=== PATIENT | female | born 1975 | race Hispanic/Latino ===

== ENCOUNTER → 2018-08-20 | Outpatient (CLI) | payer BC ==
--- NOTE | 2018-08-20 08:42 | Diagnostic Imaging Report ---
PROCEDURE:ABDOMINAL ULTRASOUND COMPARISON:None. INDICATIONS:ABD PAIN FINDINGS: Liver: Measures 14.6 cm. Increased hepatic parenchymal echogenicity. No focal mass. Main portal vein: Measures 1 cm. Hepatopetal flow. Gallbladder: No evidence of stone, distension, or gallbladder wall thickening. Common Bile Duct: Measures 0.3 cm. No echogenic filling defect. Sonographic Glass's sign: Negative. Right kidney: Measures 12.3 cm. No solid or cystic mass, echogenic calculi, or hydronephrosis. Normal parenchymal echogenicity. Left kidney: Measures 11.6 cm. No solid or cystic mass, echogenic calculi, or hydronephrosis. Normal parenchymal echogenicity. Spleen: Measures 11.2 cm. Pancreas: Obscured by overlying bowel gas. Inferior vena cava: Normal. Aorta: Normal. Ascites: None. CONCLUSION: Hepatic steatosis. No sonographic evidence of cholecystitis. Dictated by: MARTY EUGENE M.D. on 08/20/2018 at 8:52 Electronically approved by: MARTY EUGENE M.D. on 08/20/2018 at 8:52
== END ==
LOC: US 07:47
PROVIDERS: ATTEND Family Medicine
DX: R10.9 Unspecified abdominal pain (principal)
CPT/HCPCS: 76700

== ENCOUNTER → 2020-02-02 | Outpatient (CLI) | payer BC ==
--- NOTE | 2020-02-02 14:15 | Diagnostic Imaging Report ---
Hepatobiliary Scan with Gallbladder Ejection Fraction Clinical information: Abdominal pain Technique: Following intravenous administration of 6.6 millicuries of Tc-99m mebrofenin, dynamic images of the abdomen in the anterior projection were obtained through 60 minutes. Sincalide (CCK analog) 2.1 micrograms was administered intravenously over 30 minutes with additional imaging for determination of gallbladder ejection fraction. Discussion: Perfusion of the liver is normal. Extraction of tracer by the liver parenchyma is normal. Tracer appears promptly within the biliary tract. The gallbladder begins to fill at 12 minutes post injection of tracer and fills adequately. Tracer is seen in the small bowel by 30 minutes. There is no contractile response by the gallbladder to the pharmacologic dose of sincalide. No emptying of the gallbladder occurs during the 30 minute infusion. Impression: 1. Filling of the gallbladder excludes acute cystic duct obstruction/acute cholecystitis. 2. The gallbladder ejection fraction is undefined as there is no emptying of the gallbladder during the infusion of sincalide. This absence of a contractile response to sincalide supports the clinical diagnosis of chronic cholecystitis/gallbladder dyskinesia. Signed by: Dr. Yani Justice M.D. on 02/02/2020 2:11 PM
== END ==
LOC: NM 09:05
PROVIDERS: ATTEND Family Medicine
DX: R10.9 Unspecified abdominal pain (principal)
CPT/HCPCS: 78227; 81025; A9537

== ENCOUNTER → 2020-02-16 | Outpatient (CLI) | payer BC ==
[~2020-02-16] MED LIST: DIATRIZOATE MEGL/DIATRIZOA SOD 30 ML BTL PO ONE; IOPAMIDOL 370 MG/ML 200 ML INFUS..BTL INJ ONE; SODIUM CHLORIDE 0.9% 50ML 50 ML ONE
--- NOTE | 2020-02-16 16:17 | Diagnostic Imaging Report ---
CT of the abdomen and pelvis, with contrast, 02/16/2020. History: Right upper quadrant pain. Comparison: HIDA scan 02/02/2020. Technique: Multidetector CT scanning of the abdomen and pelvis was performed from the level of the lung bases to the inferior pubic rami after intravenous and oral administration of contrast. Coronal and sagittal multiplanar reformations were obtained. RADIATION DOSE: Total DLP: 830 mGy*cm Dose modulation, iterative reconstruction, and/or weight based adjustment of the mA/kV was utilized to reduce the radiation dose to as low as reasonably achievable. Discussion: LUNG BASES: No visualized abnormalities. ABDOMEN: The liver, gallbladder, biliary tree, spleen, pancreas, adrenal glands, and kidneys are normal. The hepatic vein, portal vein, and splenic vein are patent. The abdominal aorta is within normal limits for size. The stomach, small bowel, and large bowel are unremarkable. The appendix is visualized and is normal. There is no evidence of adenopathy or free fluid. A small fat-containing umbilical hernia is present. PELVIS: The bladder, uterus, and adnexa are normal in appearance. There is no evidence of free fluid or adenopathy. BONES AND SOFT TISSUES: No abnormality. IMPRESSION: Normal CT of the abdomen and pelvis. Nondistended gallbladder. No evidence of cholelithiasis. Signed by: Deangelo Rocha on 02/16/2020 4:13 PM
== END ==
LOC: CT 12:38
PROVIDERS: ATTEND Surgery
DX: R10.11 Right upper quadrant pain (principal); K76.0 Fatty (change of) liver, not elsewhere classified
CPT/HCPCS: 74160; Q9967

== ENCOUNTER → 2020-02-19 | Day surgery (SDC) | payer BC, OTHER ==
[2020-02-16 14:05] LABS: BASOPHILS % 0.2 % (0.0-1.0); EOSINOPHILS # (AUTO) 0.2 (0.0-0.4); EOSINOPHILS % 2.1 % (0.0-6.0); HEMATOCRIT 39.2 % (34.2-44.1); HEMOGLOBIN 12.7 g/dL (12.0-16.0); LYMPHOCYTES # (AUTO) 2.7 (1.0-3.2); LYMPHOCYTES % 32.1 % (18.0-39.1); MEAN CORPUSCULAR HEMOGLOBIN 27.1 pg (28-32); MEAN CORPUSCULAR HGB CONC 32.4 g/dL (31-35); MEAN CORPUSCULAR VOLUME 83.8 fL (81-99); MONOCYTES # (AUTO) 0.4 (0.2-0.8); MONOCYTES % 4.2 % (4.4-11.3); NEUTROPHILS # (AUTO) 5.1 (2.1-6.9); NEUTROPHILS % 61.2 % (38.7-80.0); PLATELET COUNT 169 x10e3/uL (140-360); RED BLOOD COUNT 4.68 x10e6/uL (3.6-5.1)
[2020-02-16 14:24] LABS: ALANINE AMINOTRANSFERASE 15 IU/L (0-55); ALBUMIN 3.8 g/dL (3.5-5.0); ALBUMIN/GLOBULIN RATIO 1.1 (0.8-2.0); ALKALINE PHOSPHATASE 75 IU/L (40-150); ANION GAP 12.7 mmol/L (8-16); BLOOD UREA NITROGEN 14 mg/dL (7-26); BUN/CREATININE RATIO 16 (6-25); CALCIUM 8.8 mg/dL (8.4-10.2); CARBON DIOXIDE 23 mmol/L (22-29); CHLORIDE 106 mmol/L (98-107); CREATININE, SERUM 0.85 mg/dL (0.57-1.11); EST GLOMERULAR FILTRATION RATE > 60 ML/MIN (60-); GLUCOSE 78 mg/dL (74-118); POTASSIUM 3.7 mmol/L (3.5-5.1); SODIUM 138 mmol/L (136-145)
[~2020-02-19] MED LIST changes: +BUPIVACAINE 0.5%/EPI 30 ML SDV INJ ONE; +DEXAMETHASONE SOD PHOS INJ 4 MG/ML VIAL ONE; -DIATRIZOATE MEGL/DIATRIZOA SOD 30 ML BTL PO ONE; +EPHEDRINE SULFATE INJ 50 MG/ML VIAL ONE; +FENTANYL CITRATE/PF 100MCG/2 ML INJ ONE; +GLYCOPYRROLATE INJ 0.2 MG/ML VIAL ONE; +HYDROCODONE/APAP 7.5MG-325MG 1 EA TAB ONE; -IOPAMIDOL 370 MG/ML 200 ML INFUS..BTL INJ ONE; +LIDOCAINE HCL 2% LOCAL INJ 5 ML SDV VIAL INJ ONE; +MORPHINE SULFATE INJ 10 MG/ML ONE; +NEOSTIGMINE 1 MG/ML 10ML VIAL ONE; +ONDANSETRON HCL INJ 2MG/ML 2ML 2 MG/ML VIAL ONE; +PROPOFOL IV EMULSION 10 MG/ML 20 ML VIAL ONE; +ROCURONIUM BROMIDE 10 MG/ML 5ML VIAL IV ONE; +SEVOFLURANE INHAL SOLN 250 ML PEN BTL ONE; -SODIUM CHLORIDE 0.9% 50ML 50 ML ONE
[2020-02-19 13:20] VITALS: BP 113/61
--- NOTE | 2020-02-19 13:28 | Operative Report ---
DATE OF PROCEDURE: 02/19/2020 SURGEON: Ignacio Sweet MD PREOPERATIVE DIAGNOSIS: Chronic acalculous cholecystitis and biliary dyskinesia. POSTOPERATIVE DIAGNOSIS: Chronic acalculous cholecystitis and biliary dyskinesia. PROCEDURE PERFORMED: Laparoscopic cholecystectomy. [employer]: ROXY Lang. ESTIMATED BLOOD LOSS: Minimal. DRAINS: None. COMPLICATIONS: None. INDICATION AND FINDINGS: This patient is a 44-year-old female who had been complaining of upper abdominal pain, fatty food intolerance since 2018. She had no stones by ultrasound. Ejection fraction by HIDA was zero. CT scan revealed no acute abdominal or pelvic pathology. INTRAOPERATIVE FINDINGS: No stones. No ductal dilatation. On the lateral part of the pelvis, near the lateral aspect of the wall of the urinary bladder, there is a pigmented spot, measuring about 1 cm which I think is most likely hemangioma of the area. I performed inspection of the pelvic viscera and I did not find any evidence of endometriosis. Because of the location of this area and near the bladder, I decided not to biopsy to avoid any possible bleeding and/or injury to the urinary bladder. DESCRIPTION OF PROCEDURE: With the patient lying on the operative table in the supine position after administration of general anesthesia, she was prepped and draped for laparoscopic cholecystectomy. The procedure was begun by establishing the pneumoperitoneum in the right upper quadrant midclavicular line because this patient had a large body mass with a BMI of greater than 37. After insufflation of the pneumoperitoneum after the Veress needle test was performed, the saline drop test was performed, we insufflated the pneumoperitoneum to 15 mmHg and then placed a 5 mm trocar there. Under direct vision with the camera, we then placed 10-11 blunt trocar and finally one 10 mm bladed subxiphoid port and a lateral right midclavicular line 5 mm bladed trocar. We continued at this point by placing the patient in the reverse Trendelenburg position and rotated to the left. We grasped the gallbladder and retracted it cephalad. Using grasping forceps, I began the dissection high in the neck of the gallbladder until we identified the cystic duct, the cystic artery, both an anterior and posterior branches, and the common bile duct. At this point, after having identified the triangle of safety, we went ahead and clipped the cystic duct distally three times, once proximally, and then transected the cystic duct as well as the cystic artery between titanium clips. When we removed the gallbladder using electrocautery dissection, we removed it through the umbilical port. At this time, we paid attention to the lateral aspect of the uterus, the adnexa, and cul-de-sac, I did not find any evidence of pelvic endometriosis. There was about a 1 cm lesion located in the lateral part of the pelvic wall, in the area of the urinary bladder. It was purplish in color and as noted above, I decided not to biopsy that as that probably represent a hemangioma and we had a CT scan that revealed no acute pathology. After we did that, we inspected the operative field, irrigated the right upper quadrant, and the gallbladder fossa. After ascertaining that there was no bleeding, no bowel injury, releasing pneumoperitoneum, we closed the wounds using 0-Vicryl for the umbilical fascia and 3-0 Vicryl for the subcutaneous tissue in the location as well as the subxiphoid port and then the skin of all the ports was closed using joni. A 0.25% Marcaine with epinephrine was then given to block the ports. The patient tolerated the procedure well, was taken to recovery room in stable condition. MD BELEN Rudd/YESENIA /[id number]
== END | disposition home or self-care (01) ==
LOC: OR 08:33
PROVIDERS: ATTEND Surgery
DX: K81.1 Chronic cholecystitis (principal); K76.0 Fatty (change of) liver, not elsewhere classified; N94.89 Other specified conditions associated with female genital organs and menstrual cycle; E66.9 Obesity, unspecified; Z01.810 Encounter for preprocedural cardiovascular examination; Z01.812 Encounter for preprocedural laboratory examination; Z11.59 Encounter for screening for other viral diseases; Z68.37 Body mass index [BMI] 37.0-37.9, adult
CPT/HCPCS: 36415; 47562; 80053; 81025; 85025; 87635; 88304; 93005; C1766; J1100; J2001; J2405; J2704; J2710; J3010; J2270